=== PATIENT | female | born 1985 | race Caucasian/White ===

== ENCOUNTER 2021-11-18 19:33 | Emergency (ER) | payer OTHER, SELFPAY ==
--- NOTE | ~2021-11-18 | CT_ITS ---
EXAMINATION: CT SOFT TISSUE NECK WITH CONTRAST CLINICAL INFORMATION: Left neck swelling COMPARISON: Ultrasound from 11/18/2021. TECHNIQUE: Following the intravenous administration of 60 mL of Omnipaque 350 intravenous contrast, helical imaging was performed in the axial plane with generation of coronal and sagittal reformatted images. This CT examination was performed using dose optimization techniques as appropriate, variously including the following: *Automated exposure control *Adjustment of mA and/or kV according to patient size (this includes techniques or standardized protocols for targeted exams where dose is matched to indication/reason for exam; i.e. extremities or head) *Use of iterative reconstruction technique DLP: 553 mGy-cm FINDINGS: Inflammatory changes are seen in the fat of the left supraclavicular region. In this area there are multiple prominent lymph nodes identified. This is asymmetric from the right side. For instance there is a node measuring 1.2 cm in long axis on series 5 image 48. There is a 1.2 cm node on image 58. There are vessels which also run through this area. No separate mass identified. Mildly prominent right jugular chain lymph nodes. There is a node measuring 1.2 cm on series 5 image 31. There is a prominent lymph node along the central vasculature measuring 1.8 cm on series 5 image 61. This is adjacent to the common carotid artery and left internal jugular vein.. The parotid glands are homogeneous in attenuation. The submandibular glands are normal. No contour abnormality or pathologic enhancement is seen within the oral cavity or pharyngeal mucosal space. The laryngeal structures are normal. The parapharyngeal fat is preserved. The carotid sheath vasculature opacify normally. No extra mucosal soft tissue mass or fluid collection is seen. No retropharyngeal fluid collection is seen. The thyroid gland is normal. The superior mediastinum is unremarkable. The lung apices are clear. The mastoid air cells and visualized portions of the paranasal sinuses are well-aerated. The temporomandibular joints are normal. No periapical disease is identified. No osseous abnormalities are seen. The imaged portions of the brain parenchyma are unremarkable. CT/CT soft tissue neck w con IMPRESSION: Nonspecific stranding of the fat in the left supraclavicular region with associated enlarged lymph nodes. This could be an inflammatory process with reactive lymphadenopathy. Neoplasm is also a concern.
--- NOTE | ~2021-11-18 | US_ITS ---
EXAMINATION: US SOFT TISSUE NECK CLINICAL INFORMATION: This is a 36-year-old female with a left neck mass. COMPARISON: None TECHNIQUE: Ultrasound of the neck soft tissues is performed with high- frequency al-scale imaging and color Doppler. FINDINGS: THYROID BED: The left neck is diffusely abnormal. There is a confluent area measuring 5.2 x 5.3 x 2.2 cm in the left neck which is hypoechoic and isoechoic to the adjacent tissues. Within this mass masslike area there are multiple abnormal-appearing lymph nodes. Adjacent to the mass masslike area there are at least 2 abnormal-appearing lymph nodes. One of the lymph nodes measures 2.6 x 1.1 x 1.3 cm. The other lymph node measures 1.6 x 0.6 x 0.6 cm. US/US soft tiss head and/or neck IMPRESSION: 1. Abnormal study with a large confluent area of subcutaneous infiltration/mass in the left neck. This appears to contain multiple hypoechoic lymph nodes. The etiology for this abnormality is unclear. There are adjacent larger lymph nodes present. The possibility of malignancy should be considered in the differential diagnosis. Better delineation of this abnormality could be obtained with a CT scan through the neck with contrast.
[2021-11-18 21:05] VITALS: BP 135/85; PULSE 85; RESP 18; TEMP 37; O2SAT 98; BMI 28.1
[2021-11-18 21:23] LABS: MANUAL DIFF FLAG NO
[2021-11-18 21:26] LABS: Basophils Absolute Auto 0.1 X10*3/uL (0.0-0.2); Basophils Percent Auto 0.4 % (0-2); Eosinophils Percent Auto 0.1 % (0-4); Hematocrit 38.9 % (37.0-47.0); Hemoglobin 13.3 g/dl (12.0-16.0); Imm Gran Abs Auto 0.07 X10*3/uL (0.00-0.03); Imm Gran Pct Auto 0.4 % (0.0-0.4); Lymphocytes Absolute Auto 1.5 X10*3/uL (1.2-4.9); Mean Corpuscular HGB Conc 34.2 g/dl (31.0-35.0); Mean Corpuscular Hemoglobin 29.3 pg (27.0-33.0); Mean Corpuscular Volume 85.7 fL (80.0-98.0); Mean Platelet Volume 8.6 fL (9.4-12.3); Monocytes Absolute Auto 1.5 X10*3/uL (0.1-1.2); Monocytes Percent Auto 8.9 % (2-11); Neutrophils Absolute Auto 13.4 x10*3/uL (2.0-8.3); Neutrophils Percent Auto 81.2 % (45-73); Platelet Count 316 X10*3/uL (160-400); Red Blood Count 4.54 X10*6/uL (4.20-5.50); Red Cell Distribution Width 12.7 % (11.0-16.0); White Blood Count 16.6 X10*3/uL (4.8-10.8)
[2021-11-18 21:47] LABS: Alanine Aminotransferase 15 U/L (0-31); Albumin Level 4.1 g/dL (3.5-5.0); Alkaline Phosphatase 66 U/L (39-117); Anion Gap 17 (12-20); Aspartate Amino Transferase 13 U/L (5-31); Bilirubin Total 0.6 mg/dL (0.0-1.0); Blood Urea Nitrogen 9 mg/dL (9-16); C Reactive Protein 13.52 mg/dL (< or = 0.50); Calcium 8.8 mg/dL (8.4-10.2); Carbon Dioxide 24 mmol/L (22-29); Chloride 102 mmol/L (96-108); Creatinine Clr Calc Pharmacy 126.2; Estimated Glomerular Filt Rate > 60; Glucose Random 98 mg/dL (60-115); Potassium 4.1 mmol/L (3.3-5.1); Sodium 139 mmol/L (135-145); Total Protein 7.5 g/dL (6.5-8.0)
[2021-11-18 22:04] LABS: Erythrocyte Sedimentation Rate 38 MM/HR (0-20)
[2021-11-18 22:27] VITALS: TEMP 37.1
--- NOTE | 2021-11-18 23:01 | ED_ITS ---
HPI - General Adult General Chief complaint: Skin/Abscess/Foreign Body <CLARE Gonsales Last Filed: 11/19/21 02:26> Stated complaint: lump on neck <CLARE Gonsales Last Filed: 11/19/21 02:26> Time Seen by Provider: 11/18/21 23:01 <CLARE Gonsales Last Filed: 11/19/21 02:26> Source: patient <CLARE Gonsales Last Filed: 11/19/21 02:26> Mode of arrival: ambulatory <CLARE Gonsales Last Filed: 11/19/21:26> Limitations: no limitations <CLARE Gonsales Last Filed: 11/19/21:> History of Present Illness HPI narrative: Patient is a 36 year old female presenting to the emergency department today with 4 days of a mass on her left clavicle and 2 days of general malaise and feeling unwell. Patient states that she has been doing a lot of traveling lately, including to [place] [employer] [place] [employer] in the last few weeks. Patient states that over the last 2 days she has been feeling generally unwell with body aches and fevers. Patient states that starting 4 days ago, she noticed significant swelling to her left lower neck/collar bone area. Patient denies any dizziness, lightheadedness, abdominal pain, nausea, vomiting, blurry vision, double vision, loss of vision, chest pain, difficulty breathing, shortness of breath, back pain, night sweats, pain with urination, increased urinary frequency, increased urinary urgency, blood in her urine or stool, syncope or a near syncopal episode, recent trauma or falls, bowel incontinence, bladder incontinence, bowel retention, bladder retention, or any other complaints at this time. <CLARE Gonsales Last Filed: 11/19/21 02:26> Onset (ago): day(s) (4) <CLARE Gonsales Last Filed: 11/19/21 02:26> Location: neck <CLARE Gonsales Last Filed: 11/19/21 02:26> Radiation: non-radiation <CLARE Gonsales Last Filed: 11/19/21 02:26> Severity: mild <CLARE Gonsales Last Filed: 11/19/21 02:26> Severity scale (1-10): 5 <CLARE Gonsales - Last Filed: 11/19/21 02:26> Quality: aching <CLARE Gonsales Last Filed: 11/19/21 02:26> Pain Consistency: constant <CLARE Gonsales Last Filed: 11/19/21 02:26> Relieving factors: none <CLARE Gonsales - Last Filed: 11/19/21 02:26> Exacerbating factors: none <CLARE Gonsales - Last Filed: 11/19/21 02:26> Associated symptoms: fever/chills and malaise <CLARE Gonsales - Last Filed: 11/19/21 02:26> Treatments prior to arrival: none <CLARE Gonsales Last Filed: 11/19/21 02:26> Related Data Home medications: Previous Rx's Medication Instructions Recorded doxycycline hyclate 100 mg tablet 100 mg PO BID 21 days #42 tabs 11/19/21 <CLARE Gonsales - Last Filed: 11/19/21 02:26> Allergies/adverse reactions: Allergies Allergy/AdvReac Type Severity Reaction Status Date / Time neomycin Allergy Unknown Verified 11/18/21 21:11 sodium lauryl sulfate Allergy Unknown Verified 11/18/21 21:11 <CLARE Gonsales - Last Filed: 11/19/21 02:26> Review of Systems Constitutional: Constitutional: Reports no additional constitutional complai nts, Reports chills, Reports fever(s) and Denies night sweats <CLARE Gonsales - Last Filed: 11/19/21 02:26> Eyes: Eyes: Reports no additional eye complaints, Denies blurry vision, Denies change in vision, Denies diplopia, Denies eye discharge, Denies loss of vision and Denies eye pain <CLARE Gonsales - Last Filed: 11/19/21 02:26> ENT: Denies dizziness and Reports neck mass <CLARE Gonsales - Last Filed: 11/19/21 02:26> Cardiovascular: Cardiovascular: Reports no additional cardiovascular complaints, Denies chest pain, Denies lightheadedness, Denies Loss of Co nsciousness and Denies dyspnea <CLARE Gonsales - Last Filed: 11/19/21 02:26> Respiratory: Respiratory: Reports no additional respiratory complaints and Denies dyspnea <CLARE Gonsales - Last Filed: 11/19/21 02:26> Gastrointestinal: Gastrointestinal: Reports no additional gastrointestinal complaints, Denies abdominal pain, Denies melena, Denies hematochezia, Denies change in bowel habits and Denies change in stool character <CLARE Gonsales - Last Filed: 11/19/21 02:26> Genitourinary: Genitourinary: Denies hematuria, Denies urinary frequency, Denies dysuria, Denies urinary incontinence, Denies urinary hesitancy and Denies urinary urgency <CLARE Gonsales - Last Filed: 11/19/21 02:26> Musculoskeletal: Musculoskeletal: Reports no additional musculoskeletal complaints, Denies numbness and Denies tingling <CLARE Gonsales - Last Filed: 11/19/21 02:26> Neurologic: Denies dizziness, Denies loss of vision, Denies numbness and Denies tingling <CLARE Gonsales Last Filed: 11/19/21 02:26> Psychiatric: Psychiatric: Reports no additional psychiatric complaints <CLARE Gonsales - Last Filed: 11/19/21 02:26> Endocrine: Endocrine: Reports no additional endocrine complaints <CLARE Gonsales - Last Filed: 11/19/21 02:26> Hematologic/Lymphatic: Hematologic/Lymphatic: Reports no additional hematologic/lymphatic complaints <CLARE Gonsales - Last Filed: 11/19/21 02:26> Allergic/Immunologic: Allergic/Immunologic: Reports no additional allergic/i mmunologic complaints <CLARE Gonsales - Last Filed: 11/19/21 02:26> PMFSH Past Medical History Attestation statement: The following information was validated with the patient. <CLARE Gonsales Last Filed: 11/19/21 02:26> Source: old records reviewed <CLARE Gonsales - Last Filed: 11/19/21 02:26> Social History Social History: Social History Advance Directives: No Advance Directives Information Provided: Yes <CLARE Gonsales - Last Filed: 11/19/21 02:26> Physical Exam ED Vital Signs: Vital Signs - 24 hr 11/18/21 21:05 11/18/21 22:27 Temperature 98.6 F 98.7 F Pulse Rate 85 Respiratory Rate 18 Blood Pressure 135/85 Pulse Oximetry 98 Oxygen Delivery Method Room Air BMI result Body Mass Index 28.1 <CLARE Gonsales - Last Filed: 11/19/21 02:26> Vital Signs - 24 hr 11/18/21 21:05 11/18/21 22:27 Temperature 98.6 F 98.7 F Pulse Rate 85 Respiratory Rate 18 Blood Pressure 135/85 Pulse Oximetry 98 Oxygen Delivery Method Room Air BMI result Body Mass Index 28.1 <Gustavo Hayden MD - Last Filed: 11/19/21 03:34> Const General: cooperative, no acute distress, alert and awake <CLARE Gonsales - Last Filed: 11/19/21 02:26> Nutritional Appearance: well nourished <CLARE Gonsales - Last Filed: 11/19/21 02:26> Orientation/consciousness: patient oriented x3 <CLARE Gonsales - Last Filed: 11/19/21 02:26> Limitations: no limitations <CLARE Gonsales - Last Filed: 11/19/21 02:26> HENMT Head: Yes normal to inspection and Yes atraumatic <CLARE Gonsales - Last Filed: 11/19/21 02:26> Ears: hearing grossly normal bilaterally and external ears normal <CLARE Gonsales - Last Filed: 11/19/21 02:26> General nose exam: Normal external nose present, no nasal discharge noted and no epistaxis <CLARE Gonsales - Last Filed: 11/19/21 02:26> Face and sinus: Yes normal facial exam, No abrasion and No laceration <CLARE Gonsales - Last Filed: 11/19/21 02:26> Mouth: Normal oral and palatal mucosa present, no drooling and no muffled voice <CLARE Gonsales - Last Filed: 11/19/21 02:26> Eyes General: appearance normal, both eyes and all related structures <Criss BushCLARE - Last Filed: 11/19/21 02:26> Periorbital: periorbital findings normal <Criss BushCLARE - Last Filed: 11/19/21 02:26> Eyelids: Yes eyelids normal <Criss BushCLARE - Last Filed: 11/19/21 02:26> Conjunctivae: conjunctivae normal <Criss BushCLARE - Last Filed: 11/19/21 02:26> Pupils: Equal, round and reactive pupils present <Criss Bush SC - Last Filed: 11/19/21 02:26> EOM: EOMs intact bilaterally <Criss BushCLARE - Last Filed: 11/19/21 02:26> Neck Other: large swelling to the left anterior cervical lymphnodes and some swelling of the posterior cervical nodes, there is some overlying erythema to the left anterior cervical area <Criss ParkCLARE gill - Last Filed: 11/19/21 02:26> Neck: Yes full ROM <Criss Bush SC - Last Filed: 11/19/21 02:26> Chest Chest palpation & inspection: normal inspection of the chest <Criss Parkjairo SC - Last Filed: 11/19/21 02:26> Resp Effort & Inspection: normal respiratory effort and able to speak in complete sentences <Criss Parkjairo SC - Last Filed: 11/19/21 02:26> Auscultation: clear to auscultation bilaterally <Criss ParkCLARE gill - Last Filed: 11/19/21 02:26> Cardio Rate: regular rate <Criss ParkCLARE gill - Last Filed: 11/19/21 02:26> Rhythm: regular rhythm <Criss ParkCLARE gill - Last Filed: 11/19/21 02:26> GI Inspection: Yes normal to inspection <Criss ParkCLARE gill - Last Filed: 11/19/21 02:26> Neuro General: patient oriented x3 and moves all extremities <Criss ParkCLARE gill - Last Filed: 11/19/21 02:26> Cranial nerves: Yes Equal, round and reactive pupils present <Criss ParkCLARE gill - Last Filed: 11/19/21 02:26> Cognition (Neuro): normal cognition <Criss BushCLARE - Last Filed: 11/19/21 02:26> Motor exam (neuro): 5/5 motor strength present throughout <Criss BushCLARE - Last Filed: 11/19/21 02:26> Sensory Exam: Normal double simultaneous stimulation for sensation <Criss BushCLARE - Last Filed: 11/19/21 02:26> Coordination: [id number] test normal <Criss BushCLARE - Last Filed: 11/19/21 02:26> Extrem General: Yes normal to inspection, Yes full ROM and Yes capillary refill normal <Criss BushCLARE - Last Filed: 11/19/21 02:26> Psych Appearance: grossly normal <Criss BushCLARE - Last Filed: 11/19/21 02:26> Mental Status: mental status grossly normal <Criss BushCLARE - Last Filed: 11/19/21 02:26> Affect: normal affect <Criss BushCLARE - Last Filed: 11/19/21 02:26> Attitude: cooperative <Criss BushCLARE - Last Filed: 11/19/21 02:26> Thought process: Normal thought process present <Criss BushCLARE - Last Filed: 11/19/21 02:26> Thought content: Normal thought content present <Criss BushCLARE - Last Filed: 11/19/21 02:26> Insight: Good insight present (Psych) <Criss BushCLARE - Last Filed: 11/19/21 02:26> Course Course Course Narrative: I did interview and examine this patient. Patient states she became ill on 11/17/2021 (2-3 days prior to evaluation). She states that she was fatigued and felt that she might have COVID since she had exposure on 11/06/2021. She states she tested negative. She then proceeded to developed fever, dizziness, nausea, joint pain and body pain. She states that she then noted swelling in her left clavicle area and also continued to have fever. The patient states that she travel to [place] in September of 2021 but was not ill while she was there. She traveled to [place] in the beginning of October and she states that she can not and areas where there were tics. From October 31 to November 06 she was in [facility] and stated attend at a [employer] camp. 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 Patient's physical examination was significa nt for a mass to her left supraclavicular and left neck area which was consistent with adenopathy. She also has erythema over this area of the mass extending up her left neck which is not warm to the touch but does ramya. Patient's exam was otherwise unremarkable. Patient had a an ultrasound of the left neck mass which is consistent with adenopathy, recommended from the radiologist was to get a CT scan of the neck with IV contrast to further delineate this finding and and there was no clear abscess noted on the soft tissue of the neck. At this time I think that the patient has a tick-borne illness but tularemia also needs to be considered since she does have rash, fever, body aches and adenopathy. The patient does not have any pets and has not been exposed to any cat scratches. The patient will be treated with doxycycline 100 mg twice a day for 3 weeks. Tick-borne illness panel and to limit testing is pending. <Gustavo Hayden MD - Last Filed: 11/19/21 03:34> Medical Decision Making [facility] Narrative Medical decision making narrative: Patient is a 36 year old female presenting to the emergency department today with left sided neck swelling and feeling generally unwell. Patient's physical exam showed significant left sided lymphadenopathy with overlying erythema. Patient's blood work showed an elevated white blood cell count at 16.6 with a left shift. Patient's CRP was elevated at 13.52. Patient's ESR was elevated at 38. Patient's US neck showed a large confluent area of subcutaneous infiltration/mass in the left neck. The radiologist remarks tht the area appears to contain multiple hypoechoic lymph nodes. Radiologist recommends getting a CT scan of the neck with contrast. Patient's CT soft tissue neck with dye showed non-specific lymphadenopathy. Due to the patient's history and physical examination, I spoke with my attending physician Dr. Hayden. He examined the patient and together, we determined that a tick borne illness is the most likely diagnosis. We believe the patient to possibly have Tularemia however, we do not have local testing for this and it will have to be sent out. I filled out a hand written lab form and the appropriate specimen was collected. Patient was given a PO dose of Doxycycline while in the department and IV rocephin. I explained my physical exam findings as well as all test results to the patient. I answered all questions asked by the patient. I stressed the importance of the patient taking her medication as prescribed. I stressed the importance of the patient following up with her primary care provider and an infectious disease specialist. I stressed the importance of the patient returning to the emergency department immediately if her symptoms were to worsen or if she were to develop any dizziness, shortness of breath, difficulty breathing, chest pain, blurry vision, loss of vision, nausea, vomiting, abdominal pain, fever, chills, back pain, or any other complaints. Patient verbalized agreement and understanding with this treatment plan and discharge. <CLARE Gonsales - Last Filed: 11/19/21 02:26> Differential Diagnosis Differential Diagnosis: tick borne illness <CLARE Gonsales - Last Filed: 11/19/21 02:26> Medical Records Medical records reviewed: Yes I reviewed the patient's medical records. <CLARE Gonsales - Last Filed: 11/19/21 02:26> Lab Data Lab results reviewed: Yes I reviewed the patient's lab results. <CLARE Gonsales - Last Filed: 11/19/21 02:26> Result diagrams: : 11/18/21 21:19 11/18/21 21:18 <CLARE Gonsales - Last Filed: 11/19/21 02:26> Labs: Lab Results 11/18/21 11/18/21 11/18/21 Range/Units 21:18 21:18 21:18 WBC (4.8-10.8) X10*3/uL RBC (4.20-5.50) X10*6/uL Hgb (12.0-16.0) g/dl Hct (37.0-47.0) % MCV (80.0-98.0) fL MCH (27.0-33.0) pg MCHC (31.0-35.0) g/dl RDW (11.0-16.0) % Plt Count (160-400) X10*3/uL MPV (9.4-12.3) fL Immature Gran % (Auto) (0.0-0.4) % Neut % (Auto) (45-73) % Lymph % (Auto) (20-40) % [place] % (Auto) (2-11) % Eos % (Auto) (0-4) % Baso % (Auto) (0-2) % Lymph # (Auto) (1.2-4.9) X10*3/uL [place] # (Auto) (0.1-1.2) X10*3/uL Eos # (Auto) (0.0-0.4) X10*3/uL Baso # (Auto) (0.0-0.2) X10*3/uL Abs Immat Gran (auto) (0.00-0.03) X10*3/uL Absolute Neuts (auto) (2.0-8.3) x10*3/uL Absolute Nucleated RBC (0.0-0.012) X10*3/uL Nucleated RBC % (auto) (0.0-0.2) /100WBC ESR 38 H (0-20) MM/HR Sodium 139 (135-145) mmol/L Potassium 4.1 (3.3-5.1) mmol/L Chloride 102 (96-108) mmol/L Carbon Dioxide 24 (22-29) mmol/L Anion Gap 17 (12-20) BUN 9 (9-16) mg/dL Creatinine 0.69 (0.5-1.4) mg/dL Estim Creat Clear Calc 126.2 Estimated GFR > 60 Random Glucose 98 (60-115) mg/dL Lactic Acid (0.5-2.0) mmol/L Calcium 8.8 (8.4-10.2) mg/dL Total Bilirubin 0.6 (0.0-1.0) mg/dL AST 13 (5-31) U/L ALT 15 (0-31) U/L Alkaline Phosphatase 66 (39-117) U/L C-Reactive Protein 13.52 H (< or = 0.50) mg/dL Total Protein 7.5 (6.5-8.0) g/dL Albumin 4.1 (3.5-5.0) g/dL Monoscreen Negative (Negative) Influenza Type A (PCR) (Negative) Influenza Type B (PCR) (Negative) RSV RNA Qual (PCR) (Negative) SARS-CoV-2 RNA (RT-PCR) (Negative) 11/18/21 11/19/21 11/19/21 Range/Units 21:19 01:02 01:02 WBC 16.6 H (4.8-10.8) X10*3/uL RBC 4.54 (4.20-5.50) X10*6/uL Hgb 13.3 (12.0-16.0) g/dl Hct 38.9 (37.0-47.0) % MCV 85.7 (80.0-98.0) fL MCH 29.3 (27.0-33.0) pg MCHC 34.2 (31.0-35.0) g/dl RDW 12.7 (11.0-16.0) % Plt Count 316 (160-400) X10*3/uL MPV 8.6 L (9.4-12.3) fL Immature Gran % (Auto) 0.4 (0.0-0.4) % Neut % (Auto) 81.2 H (45-73) % Lymph % (Auto) 9.0 L (20-40) % [place] % (Auto) 8.9 (2-11) % Eos % (Auto) 0.1 (0-4) % Baso % (Auto) 0.4 (0-2) % Lymph # (Auto) 1.5 (1.2-4.9) X10*3/uL [place] # (Auto) 1.5 H (0.1-1.2) X10*3/uL Eos # (Auto) 0.0 (0.0-0.4) X10*3/uL Baso # (Auto) 0.1 (0.0-0.2) X10*3/uL Abs Immat Gran (auto) 0.07 H (0.00-0.03) X10*3/uL Absolute Neuts (auto) 13.4 H (2.0-8.3) x10*3/uL Absolute Nucleated RBC 0.000 (0.0-0.012) X10*3/uL Nucleated RBC % (auto) 0.0 (0.0-0.2) /100WBC ESR (0-20) MM/HR Sodium (135-145) mmol/L Potassium (3.3-5.1) mmol/L Chloride (96-108) mmol/L Carbon Dioxide (22-29) mmol/L Anion Gap (12-20) BUN (9-16) mg/dL Creatinine (0.5-1.4) mg/dL Estim Creat Clear Calc Estimated GFR Random Glucose (60-115) mg/dL Lactic Acid 0.7 (0.5-2.0) mmol/L Calcium (8.4-10.2) mg/dL Total Bilirubin (0.0-1.0) mg/dL AST (5-31) U/L ALT (0-31) U/L Alkaline Phosphatase (39-117) U/L C-Reactive Protein (< or = 0.50) mg/dL Total Protein (6.5-8.0) g/dL Albumin (3.5-5.0) g/dL Monoscreen (Negative) Influenza Type A (PCR) NEGATIVE (Negative) Influenza Type B (PCR) NEGATIVE (Negative) RSV RNA Qual (PCR) NEGATIVE (Negative) SARS-CoV-2 RNA (RT-PCR) NEGATIVE (Negative) <CLARE Gonsales - Last Filed: 11/19/21 02:26> Lab Results 11/18/21 11/18/21 11/18/21 Range/Units 21:18 21:18 21:18 WBC (4.8-10.8) X10*3/uL RBC (4.20-5.50) X10*6/uL Hgb (12.0-16.0) g/dl Hct (37.0-47.0) % MCV (80.0-98.0) fL MCH (27.0-33.0) pg MCHC (31.0-35.0) g/dl RDW (11.0-16.0) % Plt Count (160-400) X10*3/uL MPV (9.4-12.3) fL Immature Gran % (Auto) (0.0-0.4) % Neut % (Auto) (45-73) % Lymph % (Auto) (20-40) % [place] % (Auto) (2-11) % Eos % (Auto) (0-4) % Baso % (Auto) (0-2) % Lymph # (Auto) (1.2-4.9) X10*3/uL [place] # (Auto) (0.1-1.2) X10*3/uL Eos # (Auto) (0.0-0.4) X10*3/uL Baso # (Auto) (0.0-0.2) X10*3/uL Abs Immat Gran (auto) (0.00-0.03) X10*3/uL Absolute Neuts (auto) (2.0-8.3) x10*3/uL Absolute Nucleated RBC (0.0-0.012) X10*3/uL Nucleated RBC % (auto) (0.0-0.2) /100WBC ESR 38 H (0-20) MM/HR Sodium 139 (135-145) mmol/L Potassium 4.1 (3.3-5.1) mmol/L Chloride 102 (96-108) mmol/L Carbon Dioxide 24 (22-29) mmol/L Anion Gap 17 (12-20) BUN 9 (9-16) mg/dL Creatinine 0.69 (0.5-1.4) mg/dL Estim Creat Clear Calc 126.2 Estimated GFR > 60 Random Glucose 98 (60-115) mg/dL Lactic Acid (0.5-2.0) mmol/L Calcium 8.8 (8.4-10.2) mg/dL Total Bilirubin 0.6 (0.0-1.0) mg/dL AST 13 (5-31) U/L ALT 15 (0-31) U/L Alkaline Phosphatase 66 (39-117) U/L C-Reactive Protein 13.52 H (< or = 0.50) mg/dL Total Protein 7.5 (6.5-8.0) g/dL Albumin 4.1 (3.5-5.0) g/dL Monoscreen Negative (Negative) Influenza Type A (PCR) (Negative) Influenza Type B (PCR) (Negative) RSV RNA Qual (PCR) (Negative) SARS-CoV-2 RNA (RT-PCR) (Negative) 11/18/21 11/19/21 11/19/21 Range/Units 21:19 01:02 01:02 WBC 16.6 H (4.8-10.8) X10*3/uL RBC 4.54 (4.20-5.50) X10*6/uL Hgb 13.3 (12.0-16.0) g/dl Hct 38.9 (37.0-47.0) % MCV 85.7 (80.0-98.0) fL MCH 29.3 (27.0-33.0) pg MCHC 34.2 (31.0-35.0) g/dl RDW 12.7 (11.0-16.0) % Plt Count 316 (160-400) X10*3/uL MPV 8.6 L (9.4-12.3) fL Immature Gran % (Auto) 0.4 (0.0-0.4) % Neut % (Auto) 81.2 H (45-73) % Lymph % (Auto) 9.0 L (20-40) % [place] % (Auto) 8.9 (2-11) % Eos % (Auto) 0.1 (0-4) % Baso % (Auto) 0.4 (0-2) % Lymph # (Auto) 1.5 (1.2-4.9) X10*3/uL [place] # (Auto) 1.5 H (0.1-1.2) X10*3/uL Eos # (Auto) 0.0 (0.0-0.4) X10*3/uL Baso # (Auto) 0.1 (0.0-0.2) X10*3/uL Abs Immat Gran (auto) 0.07 H (0.00-0.03) X10*3/uL Absolute Neuts (auto) 13.4 H (2.0-8.3) x10*3/uL Absolute Nucleated RBC 0.000 (0.0-0.012) X10*3/uL Nucleated RBC % (auto) 0.0 (0.0-0.2) /100WBC ESR (0-20) MM/HR Sodium (135-145) mmol/L Potassium (3.3-5.1) mmol/L Chloride (96-108) mmol/L Carbon Dioxide (22-29) mmol/L Anion Gap (12-20) BUN (9-16) mg/dL Creatinine (0.5-1.4) mg/dL Estim Creat Clear Calc Estimated GFR Random Glucose (60-115) mg/dL Lactic Acid 0.7 (0.5-2.0) mmol/L Calcium (8.4-10.2) mg/dL Total Bilirubin (0.0-1.0) mg/dL AST (5-31) U/L ALT (0-31) U/L Alkaline Phosphatase (39-117) U/L C-Reactive Protein (< or = 0.50) mg/dL Total Protein (6.5-8.0) g/dL Albumin (3.5-5.0) g/dL Monoscreen (Negative) Influenza Type A (PCR) NEGATIVE (Negative) Influenza Type B (PCR) NEGATIVE (Negative) RSV RNA Qual (PCR) NEGATIVE (Negative) SARS-CoV-2 RNA (RT-PCR) NEGATIVE (Negative) <Gustavo Hayden MD - Last Filed: 11/19/21 03:34> Imaging Data US Neck: Attestation: I personally reviewed and interpreted this imaging study as follows: <CLARE Gonsales - Last Filed: 11/19/21 02:26> My impression: Lymphadenopathy. <CLARE Gonsales - Last Filed: 11/19/21 02 :26> Radiologist's impression: EXAMINATION: US SOFT TISSUE NECK CLINICAL INFORMATION: This is a 36-year-old female with a left neck mass. COMPARISON: None TECHNIQUE: Ultrasound of the neck soft tissues is performed with high- frequency al-scale imaging and color Doppler. FINDINGS: THYROID BED: The left neck is diffusely abnormal. There is a confluent area measuring 5.2 x 5.3 x 2.2 cm in the left neck which is hypoechoic and isoechoic to the adjacent tissues. Within this mass masslike area there are multiple abnormal-appearing lymph nodes. Adjacent to the mass masslike area there are at least 2 abnormal-appearing lymph nodes. One of the lymph nodes measures 2.6 x 1.1 x 1.3 cm. The other lymph node measures 1.6 x 0.6 x 0.6 cm. US/US soft tiss head and/or neck IMPRESSION: ? 1. Abnormal study with a large confluent area of subcutaneous infiltration/mass in the left neck. This appears to contain multiple hypoechoic lymph nodes. The etiology for this abnormality is unclear. There are adjacent larger lymph nodes present. The possibility of malignancy should be considered in the differential diagnosis. Better delineation of this abnormality could be obtained with a CT scan through the neck with contrast. Dictated By: Kalen Hills MD Signed By: Electronically signed by Kalen Hills MD 11/19/21 0049 <CLARE Gonsales - Last Filed: 11/19/21 02:26> CT Soft tissue neck: Attestation: I personally reviewed and interpreted this imaging study as follows: <CLARE Gonsales - Last Filed: 11/19/21 02:26> My impression: Left sided lymphadenopathy. <CLARE Gonsales - Last Filed: 11/19/21 02:26> Radiologist's impression: EXAMINATION: CT SOFT TISSUE NECK WITH CONTRAST CLINICAL INFORMATION: Left neck swelling? COMPARISON: Ultrasound from 11/18/2021.? TECHNIQUE: Following the intravenous administration of 60 mL of Omnipaque 350 intravenous contrast, helical imaging was performed in the axial plane with generation of coronal and sagittal reformatted images. This CT examination was performed using dose optimization techniques as appropriate, variously including the following: *Automated exposure control *Adjustment of mA and/or kV according to patient size (this includes techniques or standardized protocols for targeted exams where dose is matched to indication/reason for exam; i.e. extremities or head) *Use of iterative reconstruction technique DLP: 553 mGy-cm FINDINGS: Inflammatory changes are seen in the fat of the left supraclavicular region. In this area there are multiple prominent lymph nodes identified. This is asymmetric from the right side. For instance there is a node measuring 1.2 cm in long axis on series 5 image 48. There is a 1.2 cm node on image 58. There are vessels which also run through this area. No separate mass identified. Mildly prominent right jugular chain lymph nodes. There is a node measuring 1.2 cm on series 5 image 31. There is a prominent lymph node along the central vasculature measuring 1.8 cm on series 5 image 61. This is adjacent to the common carotid artery and left internal jugular vein.. The parotid glands are homogeneous in attenuation. The submandibular glands are normal. No contour abnormality or pathologic enhancement is seen within the oral cavity or pharyngeal mucosal space. The laryngeal structures are normal. The parapharyngeal fat is preserved. The carotid sheath vasculature opacify normally. No extra mucosal soft tissue mass or fluid collection is seen. No retropharyngeal fluid collection is seen. The thyroid gland is normal. The superior mediastinum is unremarkable. The lung apices are clear. The mastoid air cells and visualized portions of the paranasal sinuses are well-aerated. The temporomandibular joints are normal. No periapical disease is identified. No osseous abnormalities are seen. The imaged portions of the brain parenchyma are unremarkable. CT/CT soft tissue neck w con IMPRESSION: Nonspecific stranding of the fat in the left supraclavicular region with associated enlarged lymph nodes. This could be an inflammatory process with reactive lymphadenopathy. Neoplasm is also a concern. ? Dictated By: Bhanu Ibrahim MD Signed By: Electronically signed by Bhanu Ibrahim MD 11/19/21 0158 <CLARE Gonsales - Last Filed: 11/19/21 02:26> Discharge Plan Discharge Clinical Impression: Tularemia, Tick-borne disease <CLARE Gonsales - Last Filed: 11/19/21 02:26> Patient Disposition: Home, Self-Care <CLARE Gonsales - Last Filed: 11/19/21 02:26> Instructions: Tick Bite (ED), Tularemia (ED) <CLARE Gonsales - Last Filed: 11/19/21 02:26> Additional Instructions: Follow up with a primary care provider and an infectious disease specialist. Return to the emergency department immediately if your symptoms worsen or if you develop any dizziness, shortness of breath, difficulty breat fernando, chest pain, blurry vision, loss of vision, nausea, vomiting, abdominal pain, fever, chills, back pain, or any other complaints. <CLARE Gonsales - Last Filed: 11/19/21 02:26> Prescriptions: New doxycycline hyclate 100 mg tablet 100 mg PO BID 21 Days Qty: 42 0RF <CLARE Gonsales - Last Filed: 11/19/21 02:26> Referrals: [facility] Family Medicine [Provider Group] (Call to establish and follow up with a primary care provider. If you already have a primary care provider, please call and follow up with them. ) [facility] [Provider Group] (Call to establish and follow up with a primary care provider. If you already have a primary care provider, please call and follow up with them. ) [facility] [Provider Group] (Call to establish and follow up with a primary care provider. If you already have a primary care provider, please call and follow up with them. ) [facility] [Physician] - (Call to establish and follow up with a primary care provider. If you already have a primary care provider, please call and follow up with them. ) Maris Carlton MD [Physician] - (Call to establish and follow up with an infectious disease specialist. ) <CLARE Gonsales - Last Filed: 11/19/21 02:26> Stand Alone Forms: Work/School Release <CLARE Gonsales - Last Filed: 11/19/21 02:26> Interventions: ED Discharge Assessment Last Done: 11/19/21 02:37 <CLARE Gonsales - Last Filed: 11/19/21 02:26> Discharge Date/Time: 11/19/21 03:02 <CLARE Gonsales - Last Filed: 11/19/21 02:26> Print Language: Haitian <CLARE Gonsales - Last Filed: 11/19/21 02:26>
[2021-11-18] MEDS: Acetaminophen 325 MG TABLET 975 MG PO (23:56)
[2021-11-19 00:46] LABS: Monotest Negative (Negative)
[2021-11-19] MEDS: cefTRIAXone sodium 1 GM in 0.9 % Sodium Chloride 50 ML IV (01:15)
[2021-11-19] MEDS: 0.9 % Sodium Chloride 1,000 ML 999 ML IV (01:17)
[2021-11-19 01:25] LABS: Lactic Acid 0.7 mmol/L (0.5-2.0)
[2021-11-19] MEDS: iohexoL 350 MG/ML 100 ML INFUS..BTL IV (01:41)
[2021-11-19 01:48] LABS: Influenza A PCR NEGATIVE (Negative); Influenza B PCR NEGATIVE (Negative); Resp Syncy Virus RNA Qual PCR NEGATIVE (Negative); SARS COV2 PCR INHOUSE NEGATIVE (Negative)
[2021-11-20 18:51] LABS: A. Phagocytphilium DNA,RT-PCR NOT DETECTED (NOT DETECTED); Babesia Microti DNA, RT-PCR NOT DETECTED (NOT DETECTED); Borrelia Miyamotoi,DNA RT-PCR NOT DETECTED (NOT DETECTED); E.Chaffeensis DNA RT-PCR NOT DETECTED (NOT DETECTED); Lyme(Borrelia ssp)DNA RT-PCR NOT DETECTED (NOT DETECTED)
[2021-11-21 13:34] LABS: Source-Tick borne disease BLOOD
== END 2021-11-19 03:02 | disposition home or self-care (01) ==
PROVIDERS: Physician Assistant Medical; Emergency Provider Emergency Medicine Emergency Medical Services
DX: A21.9 Tularemia, unspecified (principal); A93.8 Other specified arthropod-borne viral fevers; R22.32 Localized swelling, mass and lump, left upper limb; R53.81 Other malaise; Z20.822 Contact with and (suspected) exposure to COVID-19
CPT/HCPCS: 0241U; 36415; 70491; 76536; 80053; 83605; 85025; 85652; 86140; 86308; 87040; 87798; 87801; 96365; 99284; J0696; Q9967

== ENCOUNTER 2022-08-14 06:27 | Outpatient (REF) | payer OTHER, SELFPAY ==
[2022-08-14 11:33] LABS: MANUAL DIFF FLAG NO
[2022-08-14 11:38] LABS: Basophils Absolute Auto 0.1 X10*3/uL (0.0-0.2); Basophils Percent Auto 1.2 % (0-2); Eosinophils Absolute Auto 0.3 X10*3/uL (0.0-0.4); Eosinophils Percent Auto 3.2 % (0-4); Hemoglobin 12.9 g/dl (12.0-16.0); Imm Gran Abs Auto 0.02 X10*3/uL (0.00-0.03); Imm Gran Pct Auto 0.3 % (0.0-0.4); Lymphocytes Absolute Auto 2.9 X10*3/uL (1.2-4.9); Lymphocytes Percent Auto 36.9 % (20-40); Mean Corpuscular HGB Conc 33.1 g/dl (31.0-35.0); Mean Corpuscular Hemoglobin 29.4 pg (27.0-33.0); Mean Corpuscular Volume 88.8 fL (80.0-98.0); Mean Platelet Volume 9.7 fL (9.4-12.3); Monocytes Absolute Auto 0.8 X10*3/uL (0.1-1.2); Monocytes Percent Auto 9.9 % (2-11); Neutrophils Absolute Auto 3.8 x10*3/uL (2.0-8.3); Neutrophils Percent Auto 48.5 % (45-73); Platelet Count 451 X10*3/uL (160-400); Red Blood Count 4.39 X10*6/uL (4.20-5.50); Red Cell Distribution Width 12.7 % (11.0-16.0); White Blood Count 7.8 X10*3/uL (4.8-10.8)
[2022-08-14 11:39] LABS: Appearance Urine Clear; Color Urine Yellow; Glucose Urine UA Negative (Negative); Leukocyte Esterase Urine Negative (Negative); Nitrite Urine Negative (Negative); PH 6.5 (5.0-9.0); Urine Blood Negative (Negative); Urine Ketones Negative (Negative); Urine Protein Negative (Neg-Trace)
[2022-08-14 12:18] LABS: Alanine Aminotransferase 14 U/L (0-31); Alkaline Phosphatase 54 U/L (39-117); Anion Gap 12 (12-20); Aspartate Amino Transferase 14 U/L (5-31); Bilirubin Total 0.7 mg/dL (0.0-1.0); Blood Urea Nitrogen 11 mg/dL (9-16); Calcium 9.1 mg/dL (8.4-10.2); Carbon Dioxide 26 mmol/L (22-29); Chloride 107 mmol/L (96-108); Cholesterol 178 mg/dL; Estimated Glomerular Filt Rate > 60; Glucose Fasting 86 mg/dL (60-99); HDL Cholesterol 52 mg/dL; LDL Cholesterol Calculated 114 mg/dl; Potassium 4.2 mmol/L (3.3-5.1); Sodium 141 mmol/L (135-145); Total Protein 6.6 g/dL (6.5-8.0); Triglycerides 64 mg/dL
[2022-08-14 12:36] LABS: TSH reflex Free T4 3.55 uIU/mL (0.32-4.0)
== END 2022-08-14 06:28 | disposition home or self-care (01) ==
LOC: HO.HMGCLDS 06:27
PROVIDERS: PCP Nurse Practitioner Family; Visit Provider Nurse Practitioner Family
DX: F41.8 Other specified anxiety disorders (principal); R53.83 Other fatigue
CPT/HCPCS: 36415; 80053; 80061; 81003; 84443; 85025

== ENCOUNTER 2023-06-20 10:26 | Outpatient (REF) | payer OTHER, SELFPAY ==
[2023-06-21 04:23] LABS: HBS Num1 23.31 mIU/mL (0-7.99); ~Hepatitis B Surface Antibody REACTIVE (Nonreactive)
[2023-06-23 07:48] LABS: TS Negative Control Passed; TS Panel A 0; TS Panel B 0; TS Positive Control Passed; TSpotTB Negative (Negative)
== END 2023-06-20 10:27 | disposition home or self-care (01) ==
LOC: HO.HMGCLDS 10:26
PROVIDERS: PCP Nurse Practitioner Family; Visit Provider Nurse Practitioner Family
DX: Z11.1 Encounter for screening for respiratory tuberculosis (principal); Z78.9 Other specified health status
CPT/HCPCS: 36415; 86481; 86706

== ENCOUNTER 2023-08-09 10:01 | Outpatient (REF) | payer OTHER, SELFPAY ==
[2023-08-09 13:05] LABS: MANUAL DIFF FLAG NO
[2023-08-09 13:13] LABS: Appearance Urine Turbid; Color Urine Yellow; Glucose Urine UA Negative (Negative); Leukocyte Esterase Urine Negative (Negative); Nitrite Urine Negative (Negative); PH 6.5 (5.0-9.0); Specific Gravity - Urine >= 1.030 (1.005-1.025); Urine Blood Negative (Negative); Urine Ketones Negative (Negative); Urine Protein Trace mg/dL (Neg-Trace)
[2023-08-09 13:19] LABS: Basophils Absolute Auto 0.1 X10*3/uL (0.0-0.2); Basophils Percent Auto 0.7 % (0-2); Eosinophils Absolute Auto 0.3 X10*3/uL (0.0-0.4); Eosinophils Percent Auto 4.5 % (0-4); Hematocrit 38.5 % (37.0-47.0); Hemoglobin 12.6 g/dl (12.0-16.0); Imm Gran Abs Auto 0.02 X10*3/uL (0.00-0.03); Imm Gran Pct Auto 0.3 % (0.0-0.4); Lymphocytes Absolute Auto 2.1 X10*3/uL (1.2-4.9); Lymphocytes Percent Auto 30.7 % (20-40); Mean Corpuscular HGB Conc 32.7 g/dl (31.0-35.0); Mean Corpuscular Hemoglobin 28.8 pg (27.0-33.0); Mean Corpuscular Volume 88.1 fL (80.0-98.0); Mean Platelet Volume 9.9 fL (9.4-12.3); Monocytes Absolute Auto 1.1 X10*3/uL (0.1-1.2); Monocytes Percent Auto 16.1 % (2-11); Neutrophils Absolute Auto 3.3 x10*3/uL (2.0-8.3); Neutrophils Percent Auto 47.7 % (45-73); Platelet Count 219 X10*3/uL (160-400); Red Blood Count 4.37 X10*6/uL (4.20-5.50); Red Cell Distribution Width 12.7 % (11.0-16.0); White Blood Count 6.9 X10*3/uL (4.8-10.8)
[2023-08-09 13:59] LABS: Alanine Aminotransferase 13 U/L (0-31); Albumin Level 3.6 g/dL (3.5-5.0); Alkaline Phosphatase 45 U/L (39-117); Anion Gap 11 (12-20); Aspartate Amino Transferase 14 U/L (5-31); Bilirubin Total 0.3 mg/dL (0.0-1.0); Blood Urea Nitrogen 11 mg/dL (9-16); Calcium 8.8 mg/dL (8.4-10.2); Carbon Dioxide 25 mmol/L (22-29); Chloride 108 mmol/L (96-108); Cholesterol 133 mg/dL (<200); Estimated Glomerular Filt Rate > 60; Glucose Fasting 96 mg/dL (60-99); HDL Cholesterol 39 mg/dL (>40); LDL Cholesterol Calculated 81 mg/dL (<100); Sodium 140 mmol/L (135-145); Total Protein 6.4 g/dL (6.5-8.0); Triglycerides 65 mg/dL (<150)
[2023-08-09 14:17] LABS: TSH reflex Free T4 1.94 uIU/mL (0.32-4.0)
== END 2023-08-09 10:02 | disposition home or self-care (01) ==
LOC: HO.HMGCLDS 10:01
PROVIDERS: PCP Nurse Practitioner Family; Visit Provider Nurse Practitioner Family
DX: Z00.00 Encounter for general adult medical examination without abnormal findings (principal)
CPT/HCPCS: 36415; 80053; 80061; 81003; 84443; 85025

== ENCOUNTER 2023-08-28 14:36 | Outpatient (AMB) | payer OTHER, SELFPAY ==
--- NOTE | 2023-08-28 14:39 | MHC.PC.OV ---
Vital Signs 08/28/23 14:42 Height 5 ft 7 in Weight 197 lb BMI 30.9 BP 128/80 Blood Pressure Location Rt brachial Position Sitting Pulse 57 Pulse Source Pulse Oximeter Pulse Oximetry (%) 98 Oxygen Delivery Method Room Air Intake Visit Reasons: Physical exam Intake Note: Patient here for physical exam. Pap: 2021 due in 2024 Allergies neomycin Allergy (Verified 08/28/23 14:44) Unknown sodium lauryl sulfate Allergy (Verified 08/28/23 14:44) Unknown Medication List - Last Reconciled 08/28/23 by TEZ Del Valle melatonin 5 mg PO BEDTIME sertraline 100 mg PO DAILY Tobacco use date assessed: 08/28/23 Dental Screening Dental Screen Date: 08/28/23 Did you have a dental visit in the last 12 months?: Yes Did you have a dental problem in the last 6 months where you did not have access to dental care?: No Was dental information given to patient?: Patient has dentist HPI Physical exam HPI Details Pt is here for a PE. Labs were already performed. 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 Pt reports struggling with weight loss. She would like to be referred to a oil program compliance specialist, will refer. [facility] Medical History Breast lipoma Family History Father No problems noted. Social History Housing: Condominium Patient Tobacco Use Status: Never used Tobacco e-Cigarette/Vaping Use: Never Used Second Hand Smoke Exposure: No service: No Current occupational status: employed Current occupation: [employer] Current occupational exposures/hazards: No Cognitive needs: No Hearing needs: No Vision needs: No Questionnaire PHQ-9 Over the last 2 weeks, how often have you been bothered by any of the following problems? 1. Little interest or pleasure in doing things: not at all 2. Feeling down, depressed, or hopeless: not at all 3. Trouble falling or staying asleep, or sleeping too much: not at all 4. Feeling tired or having little energy: not at all 5. Poor appetite or overeating: not at all 6. Feeling bad about yourself - or that you are a failure or have let yourself or your family down: not at all 7. Trouble concentrating on things, such as reading the newspaper or watching television: not at all 8. Moving or speaking so slowly that other people could have noticed. Or the opposite - being so fidgety or restless that you have been moving around a lot more than usual: not at all 9. Thoughts that you would be better off or of hurting yourself in some way: not at all Total score: 0 Depression Screening Interpretation: Negative Depression Screening Done: Yes 13180 - PHQ-9 Billing: Yes Source: Developed by Drs. Tyree Lyle, Violeta Mcrae, Teo Swenson and colleagues, with an educational shahla from [employer]. Thrive Questionnaire Date Thrive assessed: 08/28/23 I am a: Patient What is your living situation today?: I have a steady place to live Within the past 12 months, did the food you bought not last and you didn't have the money to get more?: Never true Within the past 12 months, did you worry whether your food would run out before you got money to buy more?: Never true Do you have trouble paying for medicines?: No Do you have trouble getting transportation to medical appointments?: No Do you have trouble paying your heating and electricity bill?: No Do you have trouble taking care of your child, family member or friend?: No Do you have trouble with day-to-day activities such as bathing, preparing meals, shopping, managing finances, etc.?: No Are you currently unemployed and looking for a job?: No Are you interested in more education?: No Currently or been in a relationship where the following occur: I choose not to answer this question THRIVE Score: 0 AUDIT C Alcohol Use Questionnaire (AUDIT-C) 1. How often do you have a drink containing alcohol?: 2-4 times a month 2. How many drinks containing alcohol do you have on a typical day when you are drinking?: 1 or 2 3. How often do you have six or more drinks on one occasion?: Never Total Score: 2 Score Reviewed/Action Taken: No LIANE-7 AMB Questionnaire LIANE-7 Date LIANE - 7 assessed: 05/21/24 Feeling nervous, anxious, or on edge: 0 = Not at all Not being able to stop or control worryin = Not at all Worrying too much about different things: 0 = Not at all Trouble relaxin = Not at all Being so restless that it is hard to sit still: 0 = Not at all Becoming easily annoyed or irritable: 0 = Not at all Feeling afraid as if something awful might happen: 0 = Not at all Total LIANE-7 score (0-4 normal; 5-9 mild; 10-14 moderate; 15-21 severe): 0 Source: Developed by Drs. Tyree Lyle, Violeta Mcrae, Teo Swenson and colleagues, with an educational shahla from [employer]. LIANE-7 Assessment Billing LIANE-7 Assessment Tool: LIANE-7 Assessment 03322 Review of Systems Const Denies chills and Denies fever(s) Eyes Denies blurry vision ENT Denies vertigo, Denies dizziness and Denies sore throat Card Denies chest pain at rest, Denies chest pain with activity, Denies diaphoresis, Denies dyspnea and Denies dyspnea on exertion Resp Denies cough, Denies dyspnea, Denies dyspnea on exertion and Denies wheezing GI Denies abdominal pain, Denies melena, Denies hematochezia, Denies constipation, Denies diarrhea and Denies loose stools Denies hematuria Musc Denies numbness and Denies tingling Skin/Breast Denies lesions Neuro Denies vertigo, Denies dizziness, Denies numbness and Denies tingling Psych Denies anxiety, Denies depression, Denies homicidal ideation, Denies suicidal ideation and Denies other (substance abuse) Aller/Immun Denies wheezing Physical exam (Primary Care) Vital Signs: Last Vital Signs Pulse 57 08/28/23 14:42 BP 128/80 08/28/23 14:42 Pulse Ox 98 08/28/23 14:42 Oxygen Delivery Method Room Air 08/28/23 14:42 BMI result Body Mass Index 30.9 Tobacco/Smoking Status: Tobacco use Status Tobacco use date assessed 08/28/23 08/28/23 14:49 Patient Tobacco Use Status Never used Tobacco 08/28/23 14:39 e-Cigarette/Vaping Use Never Used 08/28/23 14:39 PHQ-9: PHQ-9 Score PHQ-9: Total score 0 08/28/23 14:56 Depression Screening Interpretation: Negative Thrive Assessment: Date of Thrive Assessment Date Thrive assessed 08/28/23 08/28/23 14:56 Currently or been in a relationship where the following occur: I choose not to answer this question Const General: cooperative Nutritional Appearance: well nourished Orientation/consciousness: patient oriented x3 HENMT Head: Yes normal to inspection, Yes normocephalic and Yes atraumatic Ears: TM's normal bilaterally Eyes General: appearance normal, both eyes and all related structures Alignment and Position: alignment normal and position normal Neck Neck: Yes normal visual inspection and Yes no lymphadenopathy Thyroid: Thyroid normal Resp Effort & Inspection: normal respiratory effort Auscultation: clear to auscultation bilaterally Cardio Rate: regular rate Rhythm: regular rhythm Heart sounds: S1 normal heart sound present, S2 normal heart sound present and no murmurs GI Palpation (GI): Soft to palpation and nontender Auscultation: normal bowel sounds Skin Rashes: no rashes Neuro General: patient oriented x3, moves all extremities, no focal motor deficits and deep tendon reflexes 2+ bilaterally Romberg Test: Negative Psych Appearance: grossly normal Mental Status: mental status grossly normal Speech and movement: Normal speech and movement present Affect: normal affect Attitude: cooperative Thought process: Normal thought process present Thought content: Normal thought content present Insight: Good insight present (Psych) Judgement: Good judgement present (Psych) Assessment and Plan Assessment & Plan (1) Obesity: Code(s): E66.9 - Obesity, unspecified Plan: Referred to oil program compliance specialist (2) Physical exam: Code(s): Z00.00 - Encounter for general adult medical examination without abnormal findings Plan The patient agreed to the use of a medical center manager for this encounter. Scribed for TEZ Mcneill by Kirstin Childers medical center manager, on 08/28/2023 at 15:00 EST. 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
[2023-08-28 14:42] VITALS: BP 128/80; PULSE 57; O2SAT 98; BMI 30.9
== END 2023-08-28 15:28 | disposition home or self-care (01) ==
PROVIDERS: PCP Nurse Practitioner Family; Visit Provider Nurse Practitioner Family
DX: Z00.00 Encounter for general adult medical examination without abnormal findings (principal); E66.9 Obesity, unspecified; Z68.30 Body mass index [BMI] 30.0-30.9, adult
CPT/HCPCS: 99395

== ENCOUNTER 2023-09-25 11:03 | Outpatient (AMB) | payer OTHER, SELFPAY ==
--- NOTE | 2023-09-25 11:12 | MHC.AMNUTRGE ---
VS Expanded 09/25/23 11:13 10/03/23 12:55 Height 5 ft 7 in 5 ft 7 in Weight 197 lb 12.074 oz 198 lb BMI 31.0 31.0 Intake Visit Reasons: Obesity/CONFIRMED Allergies neomycin Allergy (Verified 08/28/23 14:44) Unknown sodium lauryl sulfate Allergy (Verified 08/28/23 14:44) Unknown Nutrition Presentation Details: Pt presents for MNT for obesity Pt's work and meal schedule varies frequently leading to challenges with meal prep and eating out more frequently Pt reports wt at 175 lbs in 2019 food frequency fruits: 0-1/d ve serving/day dairy 2+/d protein : 50-60 g /d water: >40 oz/d BS Monitoring Most Recent Diabetes Results: Cholesterol 133 mg/dL (<200) 08/09/23 HDL Cholesterol 39 mg/dL (>40) L 08/09/23 Triglycerides 65 mg/dL (<150) 08/09/23 Creatinine 0.72 mg/dL (0.5-1.4) 08/09/23 Blood Urea Nitrogen 11 mg/dL (9-16) 08/09/23 Sodium 140 mmol/L (135-145) 08/09/23 Potassium 4.0 mmol/L (3.3-5.1) 08/09/23 Chloride 108 mmol/L (96-108) 08/09/23 Carbon Dioxide 25 mmol/L (22-29) 08/09/23 Calcium 8.8 mg/dL (8.4-10.2) 08/09/23 AST 14 U/L (5-31) 08/09/23 ALT 13 U/L (0-31) 08/09/23 Total Protein 6.4 g/dL (6.5-8.0) L 08/09/23 Albumin 3.6 g/dL (3.5-5.0) 08/09/23 ONS-Ganipvw-Ix.Jeor Equation Height: 5 ft 7 in Weight: 198 lb Resting Metabolic Rate: 1622.72 Calculated Activity Level: Mild Activity Calories Needed to Maintain Weight: 2231.24 Diagnosis Nutrition problem #1: excessive energy intake As related to (etiology) #1: diagnosis As evidenced by (sign/symptom) #1: high BMI (31 on 09/2023) [facility] Medical History Breast lipoma Family History Father No problems noted. Social History Housing: Condominium Patient Tobacco Use Status: Never used Tobacco e-Cigarette/Vaping Use: Never Used Second Hand Smoke Exposure: No service: No Current occupational status: employed Current occupation: [employer] Current occupational exposures/hazards: No Cognitive needs: No Hearing needs: No Vision needs: No Assessment & Plan Assessment & Plan (1) Obesity: Code(s): E66.9 - Obesity, unspecified Category: Medical Plan: Wt: 90 Kg ( 09/2023 ) Est kcal needs as per MSJ: 2200 (40% carb, 30% protein/fat) Est fluid needs as per 25-30 ml/d: 2700 Est prot per day as per 1 g/kg bw: 90 Recommend fiber intake : 8-10 g per day and gradually increase to 25-28 g per day for women and 35-38 g for men or as tolerated Recommend sodium intake per day : less than 2000 mg Educated patient on: ( R = reviewed V = verbalizes understanding N/R = needs review N/A = not applicable Food sources of carbohydrate, adequate serving sizes and its role in various health conditions: R Differences between complex carbohydrates a simple carbohydrates, role of fiber in diet: R V N/R Lean protein sources of foods: R V NR Differences between types of fats and role in diet (mono on saturated fat fatty acids, saturated fatty acids, trans fats): R Food sources of sodium in salt and healthy modifications for heart health in kidney health: R V R/V Vitamins and minerals: R V N/R Healthy plate method concept: R Physical activity: Benefits a precaution: R V N/R Patient Instructions: Continue working on following healthy plate method Reduce on portion sizes , reducing total carb to 60 g or less at meals Coding Level of Care Code Nutr Indiv Intake (40827) Diagnoses Obesity E66.9 Time Spent (min) 30
[2023-09-25 11:13] VITALS: BMI 31.0
[2023-10-03 12:55] VITALS: BMI 31.0
== END 2023-09-25 11:45 | disposition home or self-care (01) ==
PROVIDERS: PCP Nurse Practitioner Family; Visit Provider Dietitian, Registered
DX: E66.9 Obesity, unspecified (principal)

== ENCOUNTER → 2023-09-25 11:03 | Outpatient (BNVA) | payer OTHER, SELFPAY | PROVIDERS: PCP Nurse Practitioner Family; Visit Provider Dietitian, Registered | DX: E66.9 Obesity, unspecified (principal); Z68.31 Body mass index [BMI] 31.0-31.9, adult; Z71.3 Dietary counseling and surveillance | CPT/HCPCS: 97802 ==

== ENCOUNTER 2025-01-15 06:55 | Outpatient (AMB) | payer OTHER, SELFPAY ==
--- NOTE | 2025-01-15 08:17 | A.OFFPC_ITS ---
Intake Visit Reasons: followup medications Allergies neomycin Allergy (Verified 08/28/23 14:44) Unknown sodium lauryl sulfate Allergy (Verified 08/28/23 14:44) Unknown Tobacco use date assessed: 08/28/23 Dental Screening Dental Screen Date: 08/28/23 HPI followup medications HPI Details History of Present Illness The patient is a 39-year-old female presenting for a follow-up telehealth visit. She has a history of anxiety and depression, managed effectively with sertraline, which she plans to continue. Intermittent motion sickness is managed with a scopolamine patch, prednisone, and ondansetron. She denies any chest pain, shortness of breath, suicidal ideation, or homicidal ideation, and reports overall well-being and job satisfaction. Review of Systems - Psychiatric: Denies suicidal ideation or homicidal ideation. - Cardiovascular: Denies chest pain. - Respiratory: Denies shortness of breat h. Plan 1. Anxiety The patient will continue sertraline as it effectively manages her anxiety symptoms. 2. Depression Sertraline will be continued for depression management, as it has been effective. 3. Motion Sickness The patient has been prescribed a scopolamine patch, prednisone, and ondansetron to manage intermittent motion sickness. Discussion Notes I discussed with the patient the continuation of sertraline for anxiety and depression management, as it has been effective. We also reviewed the management of her motion sickness with the prescribed scopolamine patch, prednisone, and ondansetron. Patient Instructions - Continue taking sertraline as prescrib ed. - Use the scopolamine patch, prednisone, and ondansetron as needed for motion sickness. - Schedule a physical examination in the future. [facility] Medical History Breast lipoma Family History Father No problems noted. Social History Housing: Condominium Patient Tobacco Use Status: Never used Tobacco e-Cigarette/Vaping Use: Never Used Second Hand Smoke Exposure: No service: No Current occupational status: employed Current occupation: [employer] Current occupational exposures/hazards: No Cognitive needs: No Hearing needs: No Vision needs: No Questionnaire Thrive Questionnaire Date Thrive assessed: 09/25/24 I am a: Patient What is your living situation today?: I have a steady place to live Within the past 12 months, did the food you bought not last and you didn't have the money to get more?: Never true Within the past 12 months, did you worry whether your food would run out before you got money to buy more?: Never true Do you have trouble paying for medicines?: No Do you have trouble getting transportation to medical appointments?: No Do you have trouble paying your heating and electricity bill?: No Do you have trouble taking care of your child, family member or friend?: No Do you have trouble with day-to-day activities such as bathing, preparing meals, shopping, managing finances, etc.?: No Are you currently unemployed and looking for a job?: No Are you interested in more education?: No THRIVE Score: 0 LIANE-7 AMB Questionnaire LIANE-7 Date LIANE - 7 assessed: 08/28/23 Source: Developed by Drs. Tyree Lyle, Violeta Mcrae, Teo Swenson and colleagues, with an educational shahla from [employer]. Physical exam (Primary Care) Tobacco/Smoking Status: Tobacco use Status Tobacco use date assessed 08/28/23 08/28/23 14:49 Patient Tobacco Use Status Never used Tobacco 08/28/23 14:39 e-Cigarette/Vaping Use Never Used 08/28/23 14:39 Thrive Assessment: Date of Thrive Assessment Date Thrive assessed 09/25/24 01/12/25 15:18 Telehealth Telehealth Telehealth Platform: [facility] Location of provider rendering services: practice address Location of patient: address on file Patient Identification confirmed using: Name, : Yes Telehealth method: video Patient verbally consented to treatment: Yes Patient verbally consented to billing insurance company: Yes Patient informed of any privacy concerns related to visit: Yes Minutes spent on Phone/Video with Pt.: 12 Coding Level of Care Code Tele Est Pt Level 3 (86606) Diagnoses Anxiety with depression F41.8 Motion sickness T75.3XXA Assessment & Plan Assessment & Plan (1) Anxiety with depression: Code(s): F41.8 - Other specified anxiety disorders Category: Medical (2) Motion sickness: Code(s): T75.3XXA - Motion sickness, initial encounter Category: Medical Plan . Medications: New scopolamine base 1 patch transdermal Q3D PRN 10 ea 0RF nausea and vomiting ondansetron 4 mg PO Q8H 20 days PRN 60 tabs 0RF nausea and vomiting prednisone 20 mg PO DAILY 5 days 5 tabs 1RF scopolamine base 1 patch transdermal Q3D PRN 10 ea 0RF nausea and vomiting prednisone 20 mg PO DAILY 5 tabs 1RF 5 days ondansetron 4 mg PO Q8H PRN 60 tabs 0RF nausea and vomiting 20 days
== END 2025-01-15 09:32 | disposition home or self-care (01) ==
LOC: HO.HMCC 06:56
PROVIDERS: PCP Nurse Practitioner Family; Visit Provider Nurse Practitioner Family
DX: F41.8 Other specified anxiety disorders (principal); T75.3XXA Motion sickness, initial encounter